=== PATIENT | male | born 1970 | race Caucasian/White ===

== ENCOUNTER → 2016-12-09 | Outpatient (CLI) | payer OTHER | LOC: SL 14:26 | DX: G47.33 Obstructive sleep apnea (adult) (pediatric) (principal) ==

== ENCOUNTER 2017-03-28 10:24 | Emergency (ER) | payer MEDICAID ==
[~2017-03-28] VITALS: Ht 182.9 cm; Wt 102.1 kg
[~2017-03-28 10:24] MED LIST: ASPIRIN 81MG TA81 MG PO; CLOPIDOGREL75 M1 PO; LIPITOR40 M1 PO; METOPROLOL SUCC25 M2 PO
--- NOTE | 2017-03-28 10:30 | Emergency Room Report ---
History of Present Illness Time Seen by [id number] Presenting Problem in Triage Pt arrived:Walked Presenting Problem:PT COMNPLAINS OF CHEST PRESSURE. 2 CARDIAC STENTS PLACED 2 DAYS AGO. 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 N Clinical Suspician of Infection? N Mental Status: 1 - Regular (Normal Baseline) Sepsis Risk:Low Sepsis Risk Have you (or family members/close friends) recently traveled outside the [place]? N If Yes, where/when: Have you had exposure to infectious disease within the past month? TB? Other? Specify: Source patient, RN notes reviewed, old records Exam Limitations no limitations Comment pt with recent stemi and was d/c yesterday and has chest pain today with no diaphoresis or sob - Cardiac Chest Pain Chest pain indicative of cardiac Yes Timing/Duration 1-3 hours Severity/Quality moderate, sharp Location central Chest Pain Radiation no radiation Activities at Onset light activity Nitro Today/Relief no nitro taken today Aspirin Treatment Today 325 mg x 1, provided at home Beta kaela treatment today no beta kaela taken Cardiac risk factors + cardiovascular disease Prior Workup/Intervention stent(s) Timing/Duration this evening Severity moderate ALLERGIES Coded Allergies: niacin (From NIASPAN EXTENDED-RELEASE) (I-RASH 04/19/16) Home Medications Active Scripts Metoprolol Succinate 25 MG PO DAILY #30 TAB Ref 2 Prov: 03/27/17 CLOPIDOGREL BISULFATE (Clopidogrel) 75 MG PO DAILY #30 TAB Ref 2 Prov: 03/27/17 ASPIRIN (Aspirin) 81 MG PO DAILY #30 Ref 2 Prov: 03/27/17 Atorvastatin Calcium (Lipitor 40MG) 40 MG PO QHS #30 TAB Ref 3 Prov: 03/27/17 History Medical History General CAD? No Angina: No ID: Yes Hypertension? Yes Hyperlipidemia? No CHF? No DVT? No PE? No COPD? No Asthma? No Anemia? No GERD? No Gastric ulcers? No GI Bleed? No Hernia? No Thyroid Problems? Yes Hypothyroidism? Yes CVA? No Seizures? No Diabetes? No Renal Insuffiency? No End Stage Renal Disease? No UTI? No Stones? No BPH? No GB Disease: No Nephritic Syndrome? No Asplenia? No Hepatitis? No Sickle Cell Disease? No Arthritis? No Migraines? No Cataracts? No Glaucoma? No MRSA? No HIV? No TB? No Anxiety? No Depression? No Cancer? No More? No Immunization Hx DT/Tetanus Unknown Pneumonia Refuses Surgical Hx Previous Surgery?Y BACK SURGERY ON L4/L5 CARDIAC STENTS X2 Family History Family Hx Cancer Yes Social History Smoking Hx Smoker: Never Smoker Tobacco: No Alcohol Alcohol: No Drugs none Review of Systems All Other Systems Reviewed and Negative Constitutional denies fever Eyes denies drainage ENT denies: ear discharge, epistaxis, throat pain. Respiratory denies cough, denies shortness of breath, denies wheezing Cardiovascular see HPI, chest pain, denies palpitations, denies syncope Gastrointestinal denies abdominal pain, denies diarrhea, denies vomiting Genitourinary denies: dysuria, frequency, hesitancy, hematuria. Musculoskeletal denies back pain, denies joint pain, denies joint swelling, denies neck pain Skin denies rash Psychiatric/Neurological denies headache, denies seizure Physical Exam Vital Signs Vital Signs Date Time Temp Pulse Resp B/P Pulse O2 O2 Flow FiO2 Ox Delivery Rate 03/28 1155 98.0 62 20 123/78 99 03/28 1113 62 20 132/82 99 03/28 1025 98.0 69 20 134/77 99 - WBC >12,000 or <4,000 or 10% bands? 2 or more SIRS Criteria Met? B/P:123/78 MAP:96 Creatinine >2.0? UA output<0.5ml/kg/hr for 2 hrs? Platelet count >100,000? Lactate >2.0mmol/1? INR >1.2 or PTT > than 60 sec? Evidence of Organ Dysfunction? Provider documented clinical suspician of infection? N Sepsis Criteria Count: 1 Sepsis Risk: Low Sepsis Risk General Appearance no apparent distress Eye Exam - bilateral eye PERRL, bilateral eye EOMI Ear, Nose, Throat normal ENT inspection Neck supple Respiratory Status No: respiratory distress. Lung Sounds bilateral: lungs clear. 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 No Results/Orders Laboratory Tests 03/28/17 1030: Sodium 139, Potassium 4.3, Chloride 102, Carbon Dioxide 33 H, BUN 15, Creatinine 0.9, Estimated Creat Clear 148, Estimated GFR (MDRD) 91, Glucose 89, Calcium 8.7, Total Bilirubin 0.8, AST 20, ALT 23, Alkaline Phosphatase 81, Creatine Kinase 125, CK-MB (CK-2) Rel Index 1.9, CK and CKMB Interp 2.4, Troponin I 1.46 H, Total Protein 7.6, Albumin 3.7, Globulin 3.9 H, Albumin/ Globulin Ratio 0.9 L, WBC 7.5, RBC 5.05, Hgb 15.4, Hct 45.8, MCV 90.8, RDW 12.8 , Plt Count 197, MPV 7.4, Gran % 70.1, Gran # 5.2, Lymphocytes % 24.2, Monocytes % 4.0, Eosinophils % 1.2, Basophils % 0.5, Lymphocytes # 1.8, Monocytes # 0.3, Eosinophils # 0.1, Basophils # 0.0, PUBS MCHC 33.7, MCH 30.6 Current Medication Orders Sig/Klarissa Start time Last Medication Dose Route Stop Time Status Admin Sodium Chloride 10 ML PRN PRN 03/28 1045 AC IV 03/29 1032 Orders Procedure Date/time Status ECHO ADULT 03/28 1157 Active ELECTROCARDIOGRAM REQUEST 03/28 1032 Active IV SALINE LOCK 03/28 1032 Active DIVER PUMPER 03/28 1032 Active CBC WITH AUTO DIFF 03/28 1032 Complete CARDIAC ENZYMES 03/28 1032 Complete CHEM 12 PROFILE 03/28 1032 Complete 12 LEAD EKG-MICHELLE (INITIAL) 03/28 UNK Active 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 ST/Twave chgs XRAY/CT/US XRAY/CT/US Ultrasound cardiac echo US Interpretation by discussed w/radiologist US results normal Departure Departure Time of Disposition 1232 Disposition DC Home or Self Care(routine) Clinical Impression Primary Impression: Chest pain Qualifiers: Chest pain type: unspecified Qualified Code: R07.9 - Chest pain, unspecified Condition STABLE Referrals Rafael Reina MD saw by son in ed Patient Instructions DI for Chest Pain Additional Instructions follow up with card and start meds Discharge Counseling Counseled pt/family regarding diagnosis, test results, follow up needs ED Critical Care Critical Care No at [phone]
--- NOTE | 2017-03-28 10:30 | Emergency Room Report ---
History of Present Illness Time Seen by [id number] Presenting Problem in Triage Pt arrived:Walked Presenting Problem:PT COMNPLAINS OF CHEST PRESSURE. 2 CARDIAC STENTS PLACED 2 DAYS AGO. 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 N Clinical Suspician of Infection? N Mental Status: 1 - Regular (Normal Baseline) Sepsis Risk:Low Sepsis Risk Have you (or family members/close friends) recently traveled outside the [place]? N If Yes, where/when: Have you had exposure to infectious disease within the past month? TB? Other? Specify: Source patient, RN notes reviewed, old records Exam Limitations no limitations Comment pt with recent stemi and was d/c yesterday and has chest pain today with no diaphoresis or sob - Cardiac Chest Pain Chest pain indicative of cardiac Yes Timing/Duration 1-3 hours Severity/Quality moderate, sharp Location central Chest Pain Radiation no radiation Activities at Onset light activity Nitro Today/Relief no nitro taken today Aspirin Treatment Today 325 mg x 1, provided at home Beta kaela treatment today no beta kaela taken Cardiac risk factors + cardiovascular disease Prior Workup/Intervention stent(s) Timing/Duration this evening Severity moderate ALLERGIES Coded Allergies: niacin (From NIASPAN EXTENDED-RELEASE) (I-RASH 04/19/16) Home Medications Active Scripts Metoprolol Succinate 25 MG PO DAILY #30 TAB Ref 2 Prov: 03/27/17 CLOPIDOGREL BISULFATE (Clopidogrel) 75 MG PO DAILY #30 TAB Ref 2 Prov: 03/27/17 ASPIRIN (Aspirin) 81 MG PO DAILY #30 Ref 2 Prov: 03/27/17 Atorvastatin Calcium (Lipitor 40MG) 40 MG PO QHS #30 TAB Ref 3 Prov: 03/27/17 History Medical History General CAD? No Angina: No HI: Yes Hypertension? Yes Hyperlipidemia? No CHF? No DVT? No PE? No COPD? No Asthma? No Anemia? No GERD? No Gastric ulcers? No GI Bleed? No Hernia? No Thyroid Problems? Yes Hypothyroidism? Yes CVA? No Seizures? No Diabetes? No Renal Insuffiency? No End Stage Renal Disease? No UTI? No Stones? No BPH? No GB Disease: No Nephritic Syndrome? No Asplenia? No Hepatitis? No Sickle Cell Disease? No Arthritis? No Migraines? No Cataracts? No Glaucoma? No MRSA? No HIV? No TB? No Anxiety? No Depression? No Cancer? No More? No Immunization Hx DT/Tetanus Unknown Pneumonia Refuses Surgical Hx Previous Surgery?Y BACK SURGERY ON L4/L5 CARDIAC STENTS X2 Family History Family Hx Cancer Yes Social History Smoking Hx Smoker: Never Smoker Tobacco: No Alcohol Alcohol: No Drugs none Review of Systems All Other Systems Reviewed and Negative Constitutional denies fever Eyes denies drainage ENT denies: ear discharge, epistaxis, throat pain. Respiratory denies cough, denies shortness of breath, denies wheezing Cardiovascular see HPI, chest pain, denies palpitations, denies syncope Gastrointestinal denies abdominal pain, denies diarrhea, denies vomiting Genitourinary denies: dysuria, frequency, hesitancy, hematuria. Musculoskeletal denies back pain, denies joint pain, denies joint swelling, denies neck pain Skin denies rash Psychiatric/Neurological denies headache, denies seizure Physical Exam Vital Signs Vital Signs Date Time Temp Pulse Resp B/P Pulse O2 O2 Flow FiO2 Ox Delivery Rate 03/28 1155 98.0 62 20 123/78 99 03/28 1113 62 20 132/82 99 03/28 1025 98.0 69 20 134/77 99 - WBC >12,000 or <4,000 or 10% bands? 2 or more SIRS Criteria Met? B/P:123/78 MAP:96 Creatinine >2.0? UA output<0.5ml/kg/hr for 2 hrs? Platelet count >100,000? Lactate >2.0mmol/1? INR >1.2 or PTT > than 60 sec? Evidence of Organ Dysfunction? Provider documented clinical suspician of infection? N Sepsis Criteria Count: 1 Sepsis Risk: Low Sepsis Risk General Appearance no apparent distress Eye Exam - bilateral eye PERRL, bilateral eye EOMI Ear, Nose, Throat normal ENT inspection Neck supple Respiratory Status No: respiratory distress. Lung Sounds bilateral: lungs clear. 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 No Results/Orders Laboratory Tests 03/28/17 1030: Sodium 139, Potassium 4.3, Chloride 102, Carbon Dioxide 33 H, BUN 15, Creatinine 0.9, Estimated Creat Clear 148, Estimated GFR (MDRD) 91, Glucose 89, Calcium 8.7, Total Bilirubin 0.8, AST 20, ALT 23, Alkaline Phosphatase 81, Creatine Kinase 125, CK-MB (CK-2) Rel Index 1.9, CK and CKMB Interp 2.4, Troponin I 1.46 H, Total Protein 7.6, Albumin 3.7, Globulin 3.9 H, Albumin/ Globulin Ratio 0.9 L, WBC 7.5, RBC 5.05, Hgb 15.4, Hct 45.8, MCV 90.8, RDW 12.8 , Plt Count 197, MPV 7.4, Gran % 70.1, Gran # 5.2, Lymphocytes % 24.2, Monocytes % 4.0, Eosinophils % 1.2, Basophils % 0.5, Lymphocytes # 1.8, Monocytes # 0.3, Eosinophils # 0.1, Basophils # 0.0, PUBS MCHC 33.7, MCH 30.6 Current Medication Orders Sig/Klarissa Start time Last Medication Dose Route Stop Time Status Admin Sodium Chloride 10 ML PRN PRN 03/28 1045 AC IV 03/29 1032 Orders Procedure Date/time Status ECHO ADULT 03/28 1157 Active ELECTROCARDIOGRAM REQUEST 03/28 1032 Active IV SALINE LOCK 03/28 1032 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 ST/Twave chgs XRAY/CT/US XRAY/CT/US Ultrasound cardiac echo US Interpretation by discussed w/radiologist US results normal Departure Departure Time of Disposition 1232 Disposition DC Home or Self Care(routine) Clinical Impression Primary Impression: Chest pain Qualifiers: Chest pain type: unspecified Qualified Code: R07.9 - Chest pain, unspecified Condition STABLE Referrals Rafael Reina MD saw by son in ed Patient Instructions DI for Chest Pain Additional Instructions follow up with card and start meds Discharge Counseling Counseled pt/family regarding diagnosis, test results, follow up needs ED Critical Care Critical Care No at 123
[2017-03-28 10:40] LABS: HEMOGLOBIN 15.4 g/dL (14.1-18.0); LYMPH # 1.8 K/mm3 (0.7-4.5); LYMPH % 24.2 % (10-50)
[2017-03-28 12:37] VITALS: BP 123/78
--- NOTE | 2017-03-28 12:45 | CONSULT NOTE ---
Standard Demographics Patient Demo Date of Consultation: 03/28/17 Referring Provider: Rashel Eagle MD Reason for Consultation: Chest pain, Recent STEMI PRIMARY DIAGNOSIS: Chest pain Problem list Problem list: 1. CAD A. STEMI, 03/26/2017, with [address] vessel. Normal LVEF. 2. History of HTN, resolved with 100 lb wt loss 3. HLD, resolved with wt loss 4. Previously obese History of present illness: History of present illness: 46-year-old white male seen in the emergency department today for chest discomfort while walking around at work. Patient recently hospitalized over the weekend and discharged yesterday after ST elevation myocardial infarction with cardiac cath performed and 2 drug-eluting stents placed in the posterior lateral vessel. Normal LEFT ventricular ejection fraction at the time of cath. Patient states the discomfort this morning was not the same as what he had on Tuesday and just was alarming to him after his recent heart attack. He describes the sensation as just an uncomfortable feeling (like he swallowed something cold and it got stuck about midway down its esophagus) without radiation, shortness of breath, diaphoresis or nausea. Currently in the emergency department the patient states he feels great and is having no discomfort. Lab work included a troponin which was elevated due to recent coronary intervention and myocardial infarction. Electrocardiogram is sinus with anterior infarct pattern. Cardiology consulted for evaluation. Past Medical History: General: Hypertension Yes CVA No Seizures No TB No COPD No Asthma No Diabetes No Angina No OK Yes Hyperlipidemia No Cancer No MRSA No GB Disease No Past Surgical HX: Previous Surgery?Y BACK SURGERY ON L4/L5 CARDIAC STENTS X2 Allergies Coded Allergies: niacin (From NIASPAN EXTENDED-RELEASE) (I-RASH 04/19/16) Home medications: Active Scripts Metoprolol Succinate 25 MG PO DAILY #30 TAB Ref 2 Prov: 03/27/17 CLOPIDOGREL BISULFATE (Clopidogrel) 75 MG PO DAILY #30 TAB Ref 2 Prov: 03/27/17 ASPIRIN (Aspirin) 81 MG PO DAILY #30 Ref 2 Prov: 03/27/17 Atorvastatin Calcium (Lipitor 40MG) 40 MG PO QHS #30 TAB Ref 3 Prov: 03/27/17 Current Medications: Current Medications Sodium Chloride 10 ML PRN PRN IV (DCD) Immunization HX DT/Tetanus Unknown Pneumonia Refuses Family history Family HX Family Hx Insignificant No Cancer Yes Social Hx: Smoking HX Tobacco No Alcohol Alcohol: No Hx of Drug Use Drug Use? No Review of systems: Constitutional No: no symptoms reported. Respiratory No: no symptoms reported. Cardiovascular see HPI, chest pain Gastrointestinal/Abdominal No no symptoms reported Genitourinary No: no symptoms reported. Musculoskeletal joint pain. Neurological No: no symptoms reported. Exam: Admission Vital Signs: 1ST Vital Signs Result Date Time Pulse Ox 99 03/28 1025 B/P 134/77 03/28 1025 Temp 98.0 03/28 102 Pulse 69 03/28 1025 Resp 20 03/28 1025 Last Vital Signs: Vital Signs Result Date Time Pulse Ox 99 03/28 1237 B/P 123/78 03/28 1237 Temp 98.0 03/28 1237 Pulse 62 03/28 1237 Resp 03/28 1237 Exam General appearance: alert, awake, no acute distress Neck: no carotid bruit, no JVD Cardiovascular: regular rate & rhythm, no murmur Respiratory: clear to auscultation, good air movement, normal breath sounds ABD: soft, no tenderness Extremities: moves all, no peripheral edema Neuro: alert, intact, oriented Laboratory data: Laboratory Tests 03/28/17 1030: Sodium 139, Potassium 4.3, Chloride 102, Carbon Dioxide 33 H, BUN 15, Creatinine 0.9, Estimated Creat Clear 148, Estimated GFR (MDRD) 91, Glucose 89, Calcium 8.7, Total Bilirubin 0.8, AST 20, ALT 23, Alkaline Phosphatase 81, Creatine Kinase 125, CK-MB (CK-2) Rel Index 1.9, CK and CKMB Interp 2.4, Troponin I 1.46 H, Total Protein 7.6, Albumin 3.7, Globulin 3.9 H, Albumin/ Globulin Ratio 0.9 L, WBC 7.5, RBC 5.05, Hgb 15.4, Hct 45.8, MCV 90.8, RDW 12.8 , Plt Count 197, MPV 7.4, Gran % 70.1, Gran # 5.2, Lymphocytes % 24.2, Monocytes % 4.0, Eosinophils % 1.2, Basophils % 0.5, Lymphocytes # 1.8, Monocytes # 0.3, Eosinophils # 0.1, Basophils # 0.0, PUBS MCHC 33.7, MCH 30.6 Plan: Assessment: 1. Atypical chest pain 2. Recent ST elevation myocardial infarction 2 days ago 3. History of hypertension and hyperlipidemia improved with 100 pound weight loss over the last year 4. Anxiety Recommendations: Echocardiogram was performed today with no wall motion abnormality and no significant valve disorder. Patient was given reassurance that his stents appear to be working properly and that he is not having another heart attack. Recommendation for cardiac rehab was made to give the patient some measure of his physical limitations. He is concerned regarding finances due to being in a probationary period at work with a new job. He is continue his dual antiplatelet therapy, statin and beta kaela. We'll see him back in one month for follow-up. at 1243
--- NOTE | 2017-03-28 15:13 | RADIOLOGY REPORT PS360 ---
PROCEDURE: 2-D M-mode and color Doppler study INDICATIONS FOR THE TEST: Chest pain X COPD Heart Murmur Tobacco Smoking Palpitations Fatigue Syncope Edema Hypertension Diabetes Mellitus Rheumatic Fever SOB ROCHE Obesity Hyperlipidemia Family History HD Additional History NSTEMI STENTS X 2 CAD PATIENT INFORMATION HEIGHT: 72 WEIGHT:225 GENDER: Male B/P:128/72 2-D/M-MODE INTERPRETATION: 2-D MEASUREMENTS OBSERVED VALUES IN CMS Right Ventricular Dimension (RVDd) 1.6 Interventricular Septum (Thickness)(IVsd) .8 Left Ventricular Internal Dimensions(LVIDd) 5.6 Left Ventricular Posterior Wall (Thickness)(LVPWd) .9 Aortic Root 3.0 Aortic Cusp Separation 2.5 Left Atrial Dimensions (LAD) 3.4 2D 1. Left atrium is normal size, left ventricle is normal size, there is no concentric left ventricular hypertrophy, visually estimated ejection fraction of 50% with no obvious regional wall motion abnormality, endocardial surfaces are somewhat poorly visualized. 2. The right atrium is normal size, the right ventricle is qualitatively mildly enlarged with normal contractility. 3. The aortic valve is minimally thickened and calcified, leaflet continue to display good mobility. 4. The mitral and tricuspid valve are grossly normal. 5. The pulmonic valve is poorly visualized. 6. No significant pericardial effusion noted. DOPPLER INTERROGATION: Doppler interrogation of the aortic mitral and tricuspid valve reveals presence of mild mitral and tricuspid regurgitation, tricuspid regurgitant jet velocity is insufficient for calculation of the right ventricular systolic pressure. Grade 1 diastolic dysfunction seen without tissue Doppler evidence of raised left atrial pressure. CONCLUSION: 1. Normal left ventricular size, visually estimated ejection fraction 50% with no obvious regional wall motion abnormality, endocardial surfaces are somewhat poorly visualized. Grade 1 diastolic dysfunction seen without tissue Doppler evidence of raised left atrial pressure. 2. Mild mitral and tricuspid regurgitation. 3. No significant pericardial effusion noted.
== END 2017-03-28 12:37 | disposition home or self-care (01) ==
LOC: ER 10:24
PROVIDERS: Emergency Medicine
DX: R07.9 Chest pain, unspecified (principal); I10 Essential (primary) hypertension; E03.9 Hypothyroidism, unspecified; I25.2 Old myocardial infarction

== ENCOUNTER 2017-05-08 02:53 | Emergency (ER) | payer MEDICAID ==
[~2017-05-08] VITALS: Ht 182.9 cm; Wt 100.2 kg
[2017-05-08] MEDS ORDERED: PANTOPRAZOLE SO40 M1 PO (03:02)
[2017-05-08] MEDS ORDERED: FAMOTIDINE 20MG20 MG PO (03:03)
[2017-05-08] MEDS ORDERED: RANEXA1000 M2 PO (03:05)
[2017-05-08 03:16] LABS: HEMOGLOBIN 14.9 g/dL (14.1-18.0); LYMPH # 1.9 K/mm3 (0.7-4.5); LYMPH % 25.6 % (10-50)
--- NOTE | 2017-05-08 03:19 | Emergency Room Report ---
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 N Clinical Suspician of Infection? N Mental Status: 1 - Regular (Normal Baseline) Sepsis Risk:Low Sepsis Risk Have you (or family members/close friends) recently traveled outside the [place]? N If Yes, where/when: Have you had exposure to infectious disease within the past month? N TB? Other? Specify: Source patient, RN notes reviewed, family, old records Exam Limitations no limitations Comment rt sided chest pain since 1599 with no sob or vomiting and no recent illness Cardiac Chest Pain Chest pain indicative of cardiac No Timing/Duration this evening Severity moderate ALLERGIES Coded Allergies: niacin (From NIASPAN EXTENDED-RELEASE) (I-RASH 04/19/16) Home Medications Active Scripts Metoprolol Succinate 25 MG PO DAILY #30 TAB Ref 2 Prov: 03/27/17 CLOPIDOGREL BISULFATE (Clopidogrel) 75 MG PO DAILY #30 TAB Ref 2 Prov: 03/27/17 ASPIRIN (Aspirin) 81 MG PO DAILY #30 Ref 2 Prov: 03/27/17 Atorvastatin Calcium (Lipitor 40MG) 40 MG PO QHS #30 TAB Ref 3 Prov: 03/27/17 Reported Medications Pantoprazole Sodium 40 MG PO DAILY #30 Famotidine (Famotidine 20MG) 20 MG PO BID #30 Ranolazine (Ranexa) 1,000 MG PO BID #60 History Medical History General CAD? No Angina: No HI: Yes Hypertension? Yes Hyperlipidemia? No CHF? No DVT? No PE? No COPD? No Asthma? No Anemia? No GERD? No Gastric ulcers? No GI Bleed? No Hernia? No Thyroid Problems? Yes Hypothyroidism? Yes CVA? No Seizures? No Diabetes? No Renal Insuffiency? No End Stage Renal Disease? No UTI? No Stones? No BPH? No GB Disease: No Nephritic Syndrome? No Asplenia? No Hepatitis? No Sickle Cell Disease? No Arthritis? No Migraines? No Cataracts? No Glaucoma? No MRSA? No HIV? No TB? No Anxiety? No Depression? No Cancer? No More? No Immunization Hx DT/Tetanus Unknown Pneumonia Refuses Surgical Hx Previous Surgery?Y BACK SURGERY ON L4/L5 CARDIAC STENTS X2 Family History Family Hx Cancer Yes Social History Smoking Hx Smoker: Never Smoker Tobacco: No Alcohol Alcohol: No Drugs none Review of Systems All Other Systems Reviewed and Negative Constitutional denies fever Eyes denies drainage ENT denies: ear discharge, epistaxis, throat pain. Respiratory denies cough, denies shortness of breath, denies wheezing Cardiovascular chest pain, denies palpitations, denies syncope Gastrointestinal denies abdominal pain, denies diarrhea, denies vomiting Genitourinary denies: dysuria, hesitancy. Musculoskeletal denies back pain, denies joint pain, denies joint swelling, denies neck pain Skin denies rash Psychiatric/Neurological denies headache, denies seizure Physical Exam Vital Signs Vital Signs Date Time Temp Pulse Resp B/P Pulse O2 O2 Flow FiO2 Ox Delivery Rate 05/08 0358 61 20 110/74 98 05/08 0348 20 05/08 0254 97.6 86 65 127/78 97 - WBC >12,000 or <4,000 or 10% bands? 2 or more SIRS Criteria Met? B/P:110/74 MAP:94 Creatinine >2.0? UA output<0.5ml/kg/hr for 2 hrs? Platelet count >100,000? Lactate >2.0mmol/1? INR >1.2 or PTT > than 60 sec? Evidence of Organ Dysfunction? Provider documented clinical suspician of infection? N Sepsis Criteria Count: 1 Sepsis Risk: Low Sepsis Risk General Appearance no apparent distress Eye Exam - bilateral eye PERRL, bilateral eye EOMI Ear, Nose, Throat normal ENT inspection Neck supple Respiratory Status No: respiratory distress. Lung Sounds bilateral: lungs clear. 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 No Results/Orders Laboratory Tests 05/08/17 0300: Sodium 139, Potassium 3.8, Chloride 105, Carbon Dioxide 28, BUN 15, Creatinine 1.1, Estimated Creat Clear 119, Estimated GFR (MDRD) 72, Glucose 92, Calcium 8.5 , Total Bilirubin 0.8, AST 12 L, ALT 24, Alkaline Phosphatase 80, Creatine Kinase 187, CK-MB (CK-2) Rel Index 1.0, CK and CKMB Interp 1.8, Troponin I < 0.02, Total Protein 7.2, Albumin 3.7, Globulin 3.5 H, Albumin/Globulin Ratio 1.1, D-Dimer < 100, WBC 7.4, RBC 4.78, Hgb 14.9, Hct 44.6, MCV 93.3, RDW 12.7, Plt Count 190, MPV 7.7, Gran % 65.7, Gran # 4.9, Lymphocytes % 25.6, Monocytes % 5.7, Eosinophils % 2.5, Basophils % 0.5, Lymphocytes # 1.9, Monocytes # 0.4, Eosinophils # 0.2, Basophils # 0.0, PUBS MCHC 33.4, MCH 31.2 Current Medication Orders Sig/Klarissa Start time Last Medication Dose Route Stop Time Status Admin Ketorolac 0 .STK-MED ONE 05/08 347 DC Tromethamine .ROUTE Ketorolac 30 MG ONCE ONE 05/08 345 DC 05/08 Tromethamine IV 05/088 Aspirin 243 MG ONCE ONE 05/08 315 DC 05/08 PO 05/08 Aspirin 0 .STK-MED ONE 05/08 310 DC .ROUTE Sodium Chloride 10 ML PRN PRN 05/08 300 AC 05/08 IV 05/09 300 0314 Orders Procedure Date/time Status D-DIMER 05/08 335 Complete ELECTROCARDIOGRAM REQUEST 05/08 300 Active CHEST(2 VIEWS-NOT PORTABLE) 05/08 300 Active IV SALINE LOCK 05/08 300 Active COMPLETE METABOLIC PANEL 05/08 300 Complete CBC WITH AUTO DIFF 05/08 300 Complete CARDIAC ENZYMES 05/08 300 Complete 12 LEAD EKG-MICHELLE (INITIAL) 05/08 UNK Active CM/EKG CM/brine purifier Rhythm Normal Sinus Rhythm EKG compared w/(date of old), non-spec. ST/Twave chgs XRAY/CT/US XRAY/CT/US XRAY chest XR interpretation by reviewed by me Xray Results normal/NAD Departure Departure Time of Disposition 424 Disposition DC Home or Self Care(routine) Clinical Impression Primary Impression: Chest pain Qualifiers: Chest pain type: unspecified Qualified Code: R07.9 - Chest pain, unspecified Condition STABLE Referrals Terrance Valencia MD (Family) Patient Instructions DI for Chest Pain Additional Instructions see pcp and card for follow up Discharge Counseling Counseled pt/family regarding diagnosis, test results, medications/RX, follow up needs ED Critical Care Critical Care No at [id number]
[2017-05-08 03:43] LABS: BUN 15 mg/dL (7-18)
[2017-05-08 03:52] LABS: GFR (ESTIMATED) 72 ML/MIN (>60)
[2017-05-08 04:35] VITALS: BP 110/74
--- NOTE | 2017-05-08 08:58 | RADIOLOGY REPORT PS360 ---
CHEST(2 VIEWS-NOT PORTABLE) INDICATION: Chest pain COMPARISON: PA and lateral chest 08/21/2014 FINDINGS: The lung stweart are well expanded and appear clear of infiltrate. The cardiomediastinal silhouette and vascularity are normal. The costophrenic angles are clear. The bony thorax is normal. IMPRESSION: Normal chest.
--- NOTE | 2017-05-08 08:58 | RADIOLOGY REPORT PS360 ---
CHEST(2 VIEWS-NOT PORTABLE) INDICATION: Chest pain COMPARISON: PA and lateral chest 08/21/2014 FINDINGS: The lung stewart are well expanded and appear clear of infiltrate. The cardiomediastinal silhouette and vascularity are normal. The costophrenic angles are clear. The bony thorax is normal. IMPRESSION: Normal chest.
--- OUTSIDE RECORDS SUMMARY | 2017-05-13 17:58 | External Medical Summary Rpt | CCD ---
Author Author , AFSHIN PEPE Address Unknown Phone [email or web address] Care Team Providers Care Director Of Software Development Name Role Phone [facility] Unavailable Unavailable HOSPITAL P, [facility] P [facility], Unavailable Unavailable [facility] MICHELLE BUSTAMANTE, MICHELLE BUSTAMANTE Unavailable Unavailable SUNDAR, SUNDAR Unavailable Unavailable AMARILIS, Unavailable Unavailable AMARILIS Purpose Continuity of Care Document - 03-26-2017 through 2016 Problems Code Diagnosis DOS Provider Status E784 OTHER 04-12-2017 [facility] HYPERLIPIDE PHYSICIANS JD GROUP I119 HYPERTENSIV 04-12-2017 [facility] E HEART PHYSICIANS DISEASE GROUP WITHOUT HEART FAILURE I208 OTHER FORMS 04-12-2017 [facility] OF ANGINA PHYSICIANS PECTORIS GROUP I2510 ASHD DOUGLAS 04-12-2017 [facility] CORONARY PHYSICIANS ARTERY W/O GROUP [place] K219 GASTRO-ESOP 04-12-2017 [facility] H REFLUX PHYSICIANS DISEASE GROUP WITHOUT ESOPHAGITIS E785 HYPERLIPIDE 03-28-2017 [facility] JD PHYSICIANS UNSPECIFIED GROUP I10 ESSENTIAL 03-28-2017 [facility] PRIMARY PHYSICIANS HYPERTENSIO GROUP N R079 CHEST PAIN 03-28-2017 [facility] UNSPECIFIED PHYSICIANS GROUP I213 ST 03-26-2017 [facility] P INFARCTION UNS SITE [id number] ASHD DOUGLAS 03-26-2017 [facility] W[facility]PITAL P ANGINA [place] I2583 CORONARY 03-26-2017 [place] [facility] SIS DUE TO HOSPITAL P LIPID [place] Procedures Procedure DOS Code Location Performer Comment ECG 31952 GWEN MARTINEZ JR ROUTINE 7 [facility] W/LEAST P 12 LDS I&R ONLY Encounters Encounter Start End Date Code Location Performer Type Date OFFICE 64227 [facility] SUNDAR OUTPATIEN 7 7 PHYSICIAN T VISIT S GROUP 40 MINUTES OFFICE 12037 [facility] SRIVASTAV OUTPATIEN 7 7 PHYSICIAN A T NEW 60 S GROUP MINUTES
--- OUTSIDE RECORDS SUMMARY | 2017-05-13 17:58 | External Medical Summary Rpt | CCD ---
Author Author , AFSHIN SALDIVARFABIAN Address Unknown Phone [email or web address] Care Team Providers Care Pulmonary Function Technologist Name Role Phone [facility] Unavailable Unavailable HOSPITAL P, [facility] P [facility], Unavailable Unavailable [facility] MICHELLE BUSTAMANTE, MICHELLE BUSTAMANTE Unavailable Unavailable SUNDAR, SUNDAR Unavailable Unavailable AMARILIS, Unavailable Unavailable AMARILIS Purpose Continuity of Care Document - 03-26-2017 through 2016 Problems Code Diagnosis DOS Provider Status E784 OTHER 04-12-2017 [facility] HYPERLIPIDE PHYSICIANS JD GROUP I119 HYPERTENSIV 04-12-2017 [facility] E HEART PHYSICIANS DISEASE GROUP WITHOUT HEART FAILURE I208 OTHER FORMS 04-12-2017 [facility] OF ANGINA PHYSICIANS PECTORIS GROUP I2510 ASHD [place] 04-12-2017 [facility] CORONARY PHYSICIANS ARTERY W/O GROUP [place]GIN[place] K219 GASTRO-ESOP 04-12-2017 [facility] H REFLUX PHYSICIANS DISEASE GROUP WITHOUT ESOPHAGITIS E785 HYPERLIPIDE 03-28-2017 [facility] JD PHYSICIANS UNSPECIFIED GROUP I10 ESSENTIAL 03-28-2017 [facility] PRIMARY PHYSICIANS HYPERTENSIO GROUP N R079 CHEST PAIN 03-28-2017 [facility] UNSPECIFIED PHYSICIANS GROUP I213 ST 03-26-2017 [facility] P INFARCTION UNS SITE V83807 ASHD [place] 03-26-2017 [facility] W/[facility]S HOSPITAL P ANGINA [place] I2583 CORONARY 03-26-2017 [facility] P LIPID [place] Procedures Procedure DOS Code Location Performer Comment ECG 92367 GWEN MARTINEZ JR ROUTINE 7 [facility] W/LEAST P 12 LDS I&R ONLY Encounters Encounter Start End Date Code Location Performer Type Date OFFICE [address] [facility] SUNDAR OUTPATIEN 7 7 PHYSICIAN T VISIT S GROUP [address] [facility] SRIVASTAV OUTPATIEN 7 7 PHYSICIAN A T NEW 60 S GROUP MINUTES
--- OUTSIDE RECORDS SUMMARY | 2017-05-13 17:58 | External Medical Summary Rpt | CCD ---
Author Author , AFSHIN PEPE Address Unknown Phone [email or web address] Care Team Providers Care Field Artillery Basic Name Role Phone [facility] Unavailable Unavailable HOSPITAL P, [facility] P [facility], Unavailable Unavailable [facility] MICHELLE BUSTAMANTE, MICHELLE BUSTAMANTE Unavailable Unavailable SUNDAR, SUNDAR Unavailable Unavailable AMARILIS, Unavailable Unavailable AMARILIS Purpose Continuity of Care Document - 03-26-2017 through 2016 Problems Code Diagnosis DOS Provider Status E784 OTHER 04-12-2017 [facility] HYPERLIPIDE PHYSICIANS JD GROUP I119 HYPERTENSIV 04-12-2017 [facility] E HEART PHYSICIANS DISEASE GROUP WITHOUT HEART FAILURE I208 OTHER FORMS 04-12-2017 [facility] OF ANGINA PHYSICIANS PECTORIS GROUP I2510 ASHD [place] 04-12-2017 [facility] CORONARY PHYSICIANS ARTERY W/O GROUP [place] K219 GASTRO-ESOP 04-12-2017 [facility] H REFLUX PHYSICIANS DISEASE GROUP WITHOUT ESOPHAGITIS E785 HYPERLIPIDE 03-28-2017 [facility] JD PHYSICIANS UNSPECIFIED GROUP I10 ESSENTIAL 03-28-2017 [facility] PRIMARY PHYSICIANS HYPERTENSIO GROUP N R079 CHEST PAIN 03-28-2017 [facility] UNSPECIFIED PHYSICIANS GROUP I213 ST 03-26-2017 [facility] P INFARCTION UNS SITE [id number] ASHD [place] 03-26-2017 [facility] W/[facility]OSPITAL P ANGINA [place] I2583 CORONARY 03-26-2017 [place] [facility] SIS DUE TO HOSPITAL P LIPID [place] Procedures Procedure DOS Code Location Performer Comment ECG 77868 GWEN MARTINEZ JR ROUTINE 7 [facility] W/LEAST P 12 LDS I&R ONLY Encounters Encounter Start End Date Code Location Performer Type Date OFFICE 81875 [facility] SUNDAR OUTPATIEN 7 7 PHYSICIAN T VISIT S GROUP 40 MINUTES OFFICE 26154 [facility] SRIVASTAV OUTPATIEN 7 7 PHYSICIAN A T NEW 60 S GROUP MINUTES
--- OUTSIDE RECORDS SUMMARY | 2017-05-13 17:58 | External Medical Summary Rpt | CCD ---
Author Author , AFSHIN SALDIVARFABIAN Address Unknown Phone [email or web address] Care Team Providers Care Reclamation Engineer Name Role Phone [facility] Unavailable Unavailable HOSPITAL P, [facility] P [facility], Unavailable Unavailable [facility] MICHELLE BUSTAMANTE, MICHELLE BUSTAMANTE Unavailable Unavailable SUNDAR, SUNDAR Unavailable Unavailable AMARILIS, Unavailable Unavailable AMARILIS Purpose Continuity of Care Document - 03-26-2017 through 2016 Problems Code Diagnosis DOS Provider Status E784 OTHER 04-12-2017 [facility] HYPERLIPIDE PHYSICIANS JD GROUP I119 HYPERTENSIV 04-12-2017 [facility] E HEART PHYSICIANS DISEASE GROUP WITHOUT HEART FAILURE I208 OTHER FORMS 04-12-2017 [facility] OF ANGINA PHYSICIANS PECTORIS GROUP I2510 ASHD [place] 04-12-2017 [facility] CORONARY PHYSICIANS ARTERY W/O GROUP [place] K219 GASTRO-ESOP 04-12-2017 [facility] H REFLUX PHYSICIANS DISEASE GROUP WITHOUT ESOPHAGITIS E785 HYPERLIPIDE 03-28-2017 [facility] JD PHYSICIANS UNSPECIFIED GROUP I10 ESSENTIAL 03-28-2017 [facility] PRIMARY PHYSICIANS HYPERTENSIO GROUP N R079 CHEST PAIN 03-28-2017 [facility] UNSPECIFIED PHYSICIANS GROUP I213 ST 03-26-2017 [facility] P INFARCTION UNS SITE [id number] ASHD [place] 03-26-2017 [facility] P ANGINA [place] I2583 CORONARY 03-26-2017 [facility] P LIPID [place] Procedures Procedure DOS Code Location Performer Comment ECG 63149 GWEN MARTINEZ JR ROUTINE 7 [facility] W/LEAST P 12 LDS I&R ONLY Encounters Encounter Start End Date Code Location Performer Type Date OFFICE 82729 [facility] SUNDAR OUTPATIEN 7 7 PHYSICIAN T VISIT S GROUP 40 MINUTES OFFICE 09293 [facility] SRIVASTAV OUTPATIEN 7 7 PHYSICIAN A T NEW 60 S GROUP MINUTES
--- OUTSIDE RECORDS SUMMARY | 2017-05-13 17:59 | External Medical Summary Rpt | CCD ---
Demographics Preferred Language Czech Marital Status Unknown Voodoo Affiliation Unknown Race Unknown Ethnic Group Unknown Author Author , AFSHIN PEPE Address Unknown Phone Immunization Unable to retrieve immunization data due to connection failure with Immunization Registry. Please try again later.
--- OUTSIDE RECORDS SUMMARY | 2017-05-13 17:59 | External Medical Summary Rpt | CCD ---
Demographics Preferred Language Kyrgyz Marital Status Unknown Holiness Affiliation Unknown Race Unknown Ethnic Group Unknown Author Author , AFSHIN PEPE Address Unknown Phone Immunization Unable to retrieve immunization data due to connection failure with Immunization Registry. Please try again later.
== END 2017-05-08 04:36 | disposition home or self-care (01) ==
LOC: ER 02:53
PROVIDERS: Emergency Medicine
DX: R07.9 Chest pain, unspecified (principal); E03.9 Hypothyroidism, unspecified; Z88.8 Allergy status to other drugs, medicaments and biological substances; I10 Essential (primary) hypertension

== ENCOUNTER → 2017-07-15 | Outpatient (CLI) | payer BC ==
[~2017-07-15] MED LIST changes: +FAMOTIDINE 20MG20 MG PO; +PANTOPRAZOLE SO40 M1 PO; +RANEXA1000 M2 PO
--- NOTE | 2017-07-15 14:26 | RADIOLOGY REPORT PS360 ---
EXAM: Barium swallow/esophagram. INDICATION: Burning in chest after eating ORDERING PHYSICIAN: Rafael Reina MD PATIENT AGE: 46 years COMPARISON: None TECHNIQUE: In the upright position the patient was observed to swallow barium in both the AP and lateral view. The cervical esophagus was examined under fluoroscopy with images obtained. The patient was then placed prone in the right anterior oblique position and was observed to swallow barium with Valsalva technique . FLUOROSCOPY TIME: 39 seconds FINDINGS: There was no evidence of aspiration. There was normal peristalsis. No filling defects or mucosal abnormalities. No masses or strictures. No hiatal hernia IMPRESSION: Negative barium swallow.
== END ==
LOC: RAD 09:00
DX: K21.9 Gastro-esophageal reflux disease without esophagitis (principal); I25.10 Atherosclerotic heart disease of native coronary artery without angina pectoris; I10 Essential (primary) hypertension; I11.9 Hypertensive heart disease without heart failure